=== PATIENT | female | born 1945 | race Caucasian/White ===

== ENCOUNTER 2021-02-25 10:20 | Observation (INO) | payer SELFPAY ==
[~2021-02-25] VITALS: Ht 157.5 cm; Wt 81.8 kg
[2021-02-25] MEDS ORDERED: IV NORMAL SALINE 1000ML BAG 1,000 ML IV ONE ×2 (10:30→13:00)
--- NOTE | 2021-02-25 10:45 | PHYS DOC ---
Adult General Chief Complaint Chief Complaint: NEAR SYNCOPE HPI HPI The patient is a 75-year-old female with a history of hypertension on carvedilol (no new meds) and who is otherwise healthy. She was in her normal state of health earlier today. Ms. Wiley presents for evaluation of sudden onset of profound lightheadedness, diaphoresis and fatigue with onset while she was sitting in the bleachers getting ready to watch her grandson wrestle. Associated chest pressure affecting her bilateral upper chest and shoulders, nonexertional and nonpleuritic. Associated mild shortness of breath. Patient states she had been sitting for some time when she suddenly developed all of the symptoms noted above. Patient did not frankly pass out but had to lay down on the bleachers. No associated fevers, nausea or vomiting, headache, focal or lateralizing weakness, numbness or tingling, neck stiffness/pain/meningismus, vision changes, upper respiratory congestion/rhinorrhea, cough, sore throat, abdominal pain of any kind, flank pain, midline back pain, dysuria, hematuria, polyuria or oliguria, changes in bowel habits. Patient endorses normal intake of food and fluids prior to onset of symptoms; she stopped for [employer] before the wrestling match. EMS report that patient had a low blood pressure measured initially when they came on scene; she did not have palpable radial or DP/PT pulses bilaterally for them initially but once they got her moved to the cot and brought her outside, normal pulses were palpable and blood pressure was appropriate, as was blood glucose. EMS twelve-lead EKG obtained and showed normal sinus rhythm, no ischemic changes. Patient is alert and pleasantly and appropriately interactive and in no acute distress with completely appropriate vital signs upon initial evaluation here in the emergency department. She states she feels fine now and that her symptoms lasted for 5 to 10 minutes in total. She was able to ambulate from the cot to her ED bed with a narrow, steady, non-ataxic gait. Review of Systems Review of Systems A 12 point review of systems was completed and was negative except where noted in HPI above. Current Medications Current Medications Current Medications Medications (Trade) Dose Ordered Sig/Wong Start Time Stop Time Status Last Admin Dose Admin Sodium Chloride 1,000 ml @ 1,000 mls/hr 1X ONCE 02/25/21 10:30 02/25/21 11:29 DC 02/25/21 11:11 1,000 MLS/HR Allergies Allergies Allergies Coded Allergies Type Severity Reaction Last Updated Verified No Known Drug Allergies 02/25/21 No Physical Exam Physical Exam 79-year-old female appearing nontoxic and in no acute distress. Head is normocephalic and atraumatic. Neck is supple and nontender. No JVD. Oropharynx is moist. Lungs are clear to auscultation at all stations. There is a normal S1 and S2 without rubs or gallops and capillary refill is appropriate, less than 2 seconds globally. Abdomen is soft, nontender and nondistended with no blood pulsatile mass. Skin is warm and dry without cyanosis, clubbing or edema. Psychiatrically, the patient demonstrates appropriate mood and affect and is alert. Neurologically, cranial nerves II through XII are intact and there are no lateralizing deficits seen. Speech is normal. Language is normal. Coordination is normal. There is no dysmetria with [id number] or [id number] bilaterally. Strength is 5 out of 5 in all joints of bilateral upper and lower extremities. Sensations intact light touch in bilateral upper and lower extremities. Patient ambulates with a narrow, steady, non-ataxic gait here in the emergency department and is alert and oriented x4. Evaluation of the extremities reveals BUEs and BLEs neurovascularly intact distally with strength 5-5, sensation intact light touch in all nerve distributions, radial, DP and PT pulses 2+ and equal bilaterally, capillary refill less than 2 seconds, hands and feet warm and well-perfused. No dependent peripheral edema distally. No calf tenderness or swelling bilaterally. Alexis's test is negative bilaterally. Current Patient Data Vital Signs Vital Signs Date Time Temp Pulse Resp B/P (MAP) Pulse Ox O2 Delivery O2 Flow Rate FiO2 02/25/21 10:25 98.3 58 18 106/64 (78) 98 Room Air 98.3 Lab Values Laboratory Tests Test 02/25/21 11:00 White Blood Count 7.9 x10^3/uL (4.0-11.0) Red Blood Count 4.27 x10^6/uL (3.50-5.40) Hemoglobin 12.4 g/dL (12.0-15.5) Hematocrit 37.9 % (36.0-47.0) Mean Corpuscular Volume 89 fL (79-100) Mean Corpuscular Hemoglobin 29 pg (25-35) Mean Corpuscular Hemoglobin Concent 33 g/dL (31-37) Red Cell Distribution Width 13.4 % (11.5-14.5) Platelet Count 422 x10^3/uL (140-400) H Neutrophils (%) (Auto) 61 % (31-73) Lymphocytes (%) (Auto) 29 % (24-48) Monocytes (%) (Auto) 8 % (0-9) Eosinophils (%) (Auto) 2 % (0-3) Basophils (%) (Auto) 1 % (0-3) Neutrophils # (Auto) 4.8 x10^3/uL (1.8-7.7) Lymphocytes # (Auto) 2.3 x10^3/uL (1.0-4.8) Monocytes # (Auto) 0.6 x10^3/uL (0.0-1.1) Eosinophils # (Auto) 0.2 x10^3/uL (0.0-0.7) Basophils # (Auto) 0.1 x10^3/uL (0.0-0.2) Sodium Level 136 mmol/L (136-145) Potassium Level 4.2 mmol/L (3.5-5.1) Chloride Level 100 mmol/L (98-107) Carbon Dioxide Level 26 mmol/L (21-32) Anion Gap 10 (6-14) Blood Urea Nitrogen 25 mg/dL (7-20) H Creatinine 1.1 mg/dL (0.6-1.0) H Estimated GFR (Cockcroft-Gault) 48.6 BUN/Creatinine Ratio 23 (6-20) H Glucose Level 93 mg/dL (70-99) Calcium Level 8.7 mg/dL (8.5-10.1) Total Bilirubin 1.1 mg/dL (0.2-1.0) H Aspartate Amino Transferase (AST) 15 U/L (15-37) Alanine Aminotransferase (ALT) 21 U/L (14-59) Alkaline Phosphatase 75 U/L (46-116) Troponin I High Sensitivity 6 ng/L (4-50) SP-Tyy-D-Type Natriuretic Peptide 91 pg/mL (0-124) Total Protein 6.9 g/dL (6.4-8.2) Albumin 3.2 g/dL (3.4-5.0) L Albumin/Globulin Ratio 0.9 (1.0-1.7) L SARS-CoV-2 Antigen (Rapid) Negative (NEGATIVE) Laboratory Tests 02/25/21 11:00 Laboratory Tests 02/25/21 11:00 EKG EKG Sinus rhythm, rate 54, no acute ST elevation or depression, CO 176, QRS 88, QTc 411, EP interpretation. T wave inversion lead III only, uncertain chronicity as no priors for comparison. Nonischemic tracing, intervals appropriate. Radiology/Procedures Radiology/Procedures [] Course & Med Decision Making Course & Med Decision Making Well-appearing 79-year-old female presenting for evaluation of a fairly protracted presyncopal episode with onset at rest, entailing probable low blood pressure as well as diaphoresis, shortness of breath and chest discomfort. All symptoms resolved during transport and the patient is asymptomatic here. Heart rate a little slow but is on carvedilol. Overall a fairly concerning scenario as described. Etiologies including transient dysrhythmia and symptomatic bradycardia are considered. EKG nonischemic and nonacute. Will check labs and chest x-ray and give a liter of fluids and will then reevaluate. If work-up is reassuring, plan likely observation on telemetry overnight. This is discussed with the patient who understands and agrees. 1226: Work-up unremarkable and reassuring. Patient is resting comfortably in no acute distress, remains asymptomatic. No unusual events seen on cardiac telemetry. Will bring in on an observation basis for telemetry monitoring and further care. Dr. Perdue graciously accepts. Dragon Disclaimer Dragon Disclaimer This electronic medical record was generated, in whole or in part, using a voice recognition dictation system. Departure Departure Impression: Primary Impression: Pre-syncope Disposition: ADMITTED INPATIENT Condition: FABIANA ANDRADE MD Feb 25, 2021 10:45
[2021-02-25 11:20] LABS: BASO # 0.1 x10^3/uL (0.0-0.2); BASO % 1 % (0-3); EOS # 0.2 x10^3/uL (0.0-0.7); EOS % 2 % (0-3); HEMATOCRIT 37.9 % (36.0-47.0); HEMOGLOBIN 12.4 g/dL (12.0-15.5); LYMPH # 2.3 x10^3/uL (1.0-4.8); LYMPH % 29 % (24-48); MEAN CORPUSCULAR HEMOGLOBIN 29 pg (25-35); MEAN CORPUSCULAR HGB CONC 33 g/dL (31-37); MEAN CORPUSCULAR VOLUME 89 fL (79-100); MONO # 0.6 x10^3/uL (0.0-1.1); MONO % 8 % (0-9); NEUT # 4.8 x10^3/uL (1.8-7.7); NEUT % 61 % (31-73); PLATELET COUNT 422 x10^3/uL (140-400); RED BLOOD COUNT 4.27 x10^6/uL (3.50-5.40); RED CELL DISTRIBUTION WIDTH 13.4 % (11.5-14.5); WHITE BLOOD COUNT 7.9 x10^3/uL (4.0-11.0)
--- NOTE | 2021-02-25 11:24 | RAD ---
EXAM: Chest, single view. HISTORY: Presyncope. COMPARISON: None. FINDINGS: A frontal view of the chest is obtained. There is no infiltrate, pleural effusion or pneumo thorax. The heart is normal in size. IMPRESSION: No acute pulmonary finding. Electronically signed by: Kristine Naik MD (02/25/2021 11:22 AM) [id number]
[2021-02-25 11:37] LABS: CALCIUM 8.7 mg/dL (8.5-10.1); CREATININE 1.1 mg/dL (0.6-1.0); GFR 48.6; POTASSIUM 4.2 mmol/L (3.5-5.1)
[2021-02-25 11:48] LABS: ALBUMIN 3.2 g/dL (3.4-5.0); ALBUMIN/GLOBULIN RATIO 0.9 (1.0-1.7); TOTAL BILIRUBIN 1.1 mg/dL (0.2-1.0); TOTAL PROTEIN 6.9 g/dL (6.4-8.2)
[2021-02-25] MEDS ORDERED: ONDANSETRON PF 4 MG/2 ML VIAL. IVP PRN ×2 (12:30→13:00)
[2021-02-25 12:56] LABS: BILIRUBIN,URINE NEGATIVE (NEG); CLARITY,URINE CLEAR; COLOR,URINE YELLOW; NITRITE,URINE NEGATIVE (NEG); PROTEIN,URINE NEGATIVE (NEG-TRACE); UROBILINOGEN,URINE 0.2 mg/dL (0.2 mg/dL)
[2021-02-25] MEDS ORDERED: ZOLPIDEM 5 MG TABLET. PO PRN (13:00)
[2021-02-25] MEDS ORDERED: oxyCODONE IR 5 MG TABLET PO PRN (13:00)
[2021-02-25] MEDS ORDERED: ELECTROLYTE (NON-ICU) PROTOCOL. MC PRN (13:00)
[2021-02-25] MEDS ORDERED: ACETAMINOPHEN 325 MG TABLET. PO PRN (13:00)
[2021-02-25] MEDS ORDERED: CALCIUM CARBONATE 500 MG TAB.CHEW PO PRN (13:00)
--- NOTE | 2021-02-25 13:00 | NUR ---
PATIENT ARRIVED TO FLOOR VIA GURNEY FROM ED. COOPERATIVE CALM, a ALERT AND ORIENTED X 3 . NO COMPLAINTS OF DIZZINESS OR LIGHT HEADNESS. VOCALIZES NEEDS.
[2021-02-25 13:12] LABS: BACTERIA,URINE 0 /HPF (0-FEW); HYALINE CASTS, URINE OCCASIONAL /HPF; RBC,URINE 0 /HPF (0-2); WBC,URINE OCC /HPF (0-4)
[2021-02-25 15:00] VITALS: BP 108/61
[2021-02-25] MEDS ORDERED: SPIR25TA5 PO (15:39)
[2021-02-25] MEDS ORDERED: LOSA100T14 PO (15:42)
[2021-02-25] MEDS ORDERED: CARV25TA2 PO (15:43)
[2021-02-25] MEDS ORDERED: GABA300C18 PO (15:50)
--- NOTE | 2021-02-25 17:13 | PDOC1 ---
History and Physical Date of Service: DOS: DATE: 02/25/21 TIME: 17:12 Chief Complaint: Problems: (1) Pre-syncope History of Present Illness: HPI: HPI from ED The patient is a 75-year-old female with a history of hypertension on carvedilol (no new meds) and who is otherwise healthy. She was in her normal state of health earlier today. Ms. Wiley presents for evaluation of sudden onset of profound lightheadedness, diaphoresis and fatigue with onset while she was sitting in the bleachers getting ready to watch her grandson wrestle. Associated chest pressure affecting her bilateral upper chest and shoulders, nonexertional and nonpleuritic. Associated mild shortness of breath. Patient states she had been sitting for some time when she suddenly developed all of the symptoms noted above. Patient did not frankly pass out but had to lay down on the bleachers. No associated fevers, nausea or vomiting, headache, focal or lateralizing weakness, numbness or tingling, neck stiffness/pain/meningismus, vision changes, upper respiratory congestion/rhinorrhea, cough, sore throat, abdominal pain of any kind, flank pain, midline back pain, dysuria, hematuria, polyuria or oliguria, changes in bowel habits. Patient endorses normal intake of food and fluids prior to onset of symptoms; she stopped for [employer] before the wrestling match. EMS report that patient had a low blood pressure measured initially when they came on scene; she did not have palpable radial or DP/PT pulses bilaterally for them initially but once they got her moved to the cot and brought her outside, normal pulses were palpable and blood pressure was appropriate, as was blood glucose. EMS twelve-lead EKG obtained and showed normal sinus rhythm, no ischemic changes. Patient is alert and pleasantly and appropriately interactive and in no acute distress with completely appropriate vital signs upon initial evaluation here in the emergency department. She states she feels fine now and that her symptoms lasted for 5 to 10 minutes in total. She was able to ambulate from the cot to her ED bed with a narrow, steady, non-ataxic gait. When I evaluated the patient she was resting in bed asymptomatic. Reviewed telemetry no abnormal beats. Past Medical/Surgical History: PMH/PSH: HTN Allergies: Allergies: Coded Allergies: No Known Drug Allergies (Unverified , 02/25/21) Family History: Family History: HTN Social History: Social History: Denies alcohol tobacco drug use Current Medications: Current Medications Current Medications Sodium Chloride 1,000 ml @ 1,000 mls/hr 1X ONCE IV Last administered on 02/25/21at 11:11; Start 02/25/21 at 10:30; Stop 02/25/21 at 11:29; Status DC Ondansetron HCl (Zofran) 4 mg PRN Q8HRS PRN IVP NAUSEA/VOMITING; Start 02/25/21 at 12:30; Stop 02/25/21 at 13:01; Status DC Sodium Chloride 1,000 ml @ 1,000 mls/hr 1X ONCE IV Last administered on 02/25/21at 13:00; Start 02/25/21 at 13:00; Stop 02/25/21 at 13:59; Status DC Ondansetron HCl (Zofran) 4 mg PRN Q6HRS PRN IVP NAUSEA/VOMITING; Start 02/25/21 at 13:00 Calcium Carbonate/ Glycine (Tums) 500 mg PRN Q3HRS PRN PO UPSET STOMACH; Start 02/25/21 at 13:00 Zolpidem Tartrate (Ambien) 5 mg PRN QHS PRN PO INSOMNIA, MAY REPEAT IN 1HR; Start 02/25/21 at 13:00 Info (Non-Icu Electrolyte Protocol) 1 ea PRN DAILY PRN MC SEE COMMENTS; Start 02/25/21 at 13:00 Oxycodone HCl (Roxicodone) 5 mg PRN Q3HRS PRN PO BREAKTHROUGH PAIN; Start 02/25/21 at 13:00 Acetaminophen (Tylenol) 650 mg PRN Q6HRS PRN PO Headaches, Temp > 101.5F; Start 02/25/21 at 13:00 Senna/Docusate Sodium (Senna Plus) 1 tab BID PO ; Start 02/25/21 at 21:00 Heparin Sodium (Porcine) (Heparin Sodium) 5,000 unit Q12HR SQ ; Start 02/25/21 at 21:00 Active Scripts Active Reported Gabapentin (Gabapentin) 300 Mg Capsule 300 Mg PO DAILYWSUP Carvedilol 25 Mg Tablet 25 Mg PO BIDWMEALS Losartan Potassium 100 Mg Tablet 100 Mg PO DAILY Spironolactone 25 Mg Tablet 1 Tab PO DAILY ROS: Review of Systems Review of System REVIEW OF SYSTEMS: GENERAL: Denies weakness SKIN: No bruising, hair changes or rashes. EYES: No blurred, double or loss of vision. NOSE AND THROAT: No history of nosebleeds, hoarseness or sore throat. HEART: No history of palpitations, chest pain or shortness of breath on exertion. LUNGS: Denies cough, hemoptysis, wheezing or shortness of breath. GASTROINTESTINAL: Denies changes in appetite, nausea, vomiting, diarrhea or constipation. GENITOURINARY: No history of frequency, urgency, hesitancy or nocturia. NEUROLOGIC: Denies history of numbness, tingling, or tremor. PSYCHIATRIC: No history of panic, anxiety or depression. ENDOCRINE: No history of heat or cold intolerance, polyuria or polydipsia. EXTREMITIES: Denies joint pain, pain on walking or stiffness. Physical Exam: Vital Signs: Vital Signs Date Time Temp Pulse Resp B/P (MAP) Pulse Ox O2 Delivery O2 Flow Rate FiO2 02/25/21 15:00 98.0 63 20 108/61 (77) 98 Room Air 98.0 Physcial Exam: GEN: No apparent distress. Alert and oriented HEENT: Normal cephalic, atraumatic, external auditory canals are patent EYES: Extraocular muscles are intact, pupil are equally round and reactive to light and accommodation MUSCULOSKELETAL: Well developed , well nourished, good range of motion ENDOCRINE: No thyromegaly was palpated LYMPHATICS: No cervical chain or axillary nodes were noted HEMATOPOIETIC: No bruising NECK: Supple, no JVD, no thyromegaly was noted LUNGS: Clear to auscultation in all lung darnell without rhonchi or wheezing HEART: RRR, S!, S2 present. Peripheral pulses intact, no obvious murmurs noted ABDOMEN: Soft, nontender. Positive bowel sounds, no organomegaly, normal bowel sounds EXTREMITIES: Without clubbing, cyanosis, or edema. Pedal pulses intact. Negative Homans sign NEUROLOGIC: Normal speech and tone. A&O x 3, moves all extremities, no obvious focal deficits PSYCHIATRIC: Normal affect, normal mood. Stable SKIN: No ulcerations or rashes, good skin turgor, no jaundice VASCULAR: Good capillary refill, neurovascular bundle appears to be intact Labs: Labs: Laboratory Tests Test 02/25/21 11:00 02/25/21 12:45 White Blood Count 7.9 x10^3/uL (4.0-11.0) Red Blood Count 4.27 x10^6/uL (3.50-5.40) Hemoglobin 12.4 g/dL (12.0-15.5) Hematocrit 37.9 % (36.0-47.0) Mean Corpuscular Volume 89 fL (79-100) Mean Corpuscular Hemoglobin 29 pg (25-35) Mean Corpuscular Hemoglobin Concent 33 g/dL (31-37) Red Cell Distribution Width 13.4 % (11.5-14.5) Platelet Count 422 x10^3/uL (140-400) Neutrophils (%) (Auto) 61 % (31-73) Lymphocytes (%) (Auto) 29 % (24-48) Monocytes (%) (Auto) 8 % (0-9) Eosinophils (%) (Auto) 2 % (0-3) Basophils (%) (Auto) 1 % (0-3) Neutrophils # (Auto) 4.8 x10^3/uL (1.8-7.7) Lymphocytes # (Auto) 2.3 x10^3/uL (1.0-4.8) Monocytes # (Auto) 0.6 x10^3/uL (0.0-1.1) Eosinophils # (Auto) 0.2 x10^3/uL (0.0-0.7) Basophils # (Auto) 0.1 x10^3/uL (0.0-0.2) Sodium Level 136 mmol/L (136-145) Potassium Level 4.2 mmol/L (3.5-5.1) Chloride Level 100 mmol/L (98-107) Carbon Dioxide Level 26 mmol/L (21-32) Anion Gap 10 (6-14) Blood Urea Nitrogen 25 mg/dL (7-20) Creatinine 1.1 mg/dL (0.6-1.0) Estimated GFR (Cockcroft-Gault) 48.6 BUN/Creatinine Ratio 23 (6-20) Glucose Level 93 mg/dL (70-99) Calcium Level 8.7 mg/dL (8.5-10.1) Total Bilirubin 1.1 mg/dL (0.2-1.0) Aspartate Amino Transf (AST/SGOT) 15 U/L (15-37) Alanine Aminotransferase (ALT/SGPT) 21 U/L (14-59) Alkaline Phosphatase 75 U/L (46-116) Troponin I High Sensitivity 6 ng/L (4-50) YF-Hbt-J-Type Natriuretic Peptide 91 pg/mL (0-124) Total Protein 6.9 g/dL (6.4-8.2) Albumin 3.2 g/dL (3.4-5.0) Albumin/Globulin Ratio 0.9 (1.0-1.7) SARS-CoV-2 Antigen (Rapid) Negative (NEGATIVE) Urine Collection Type Void Urine Color Yellow Urine Clarity Clear Urine pH 6.0 (<5.0-8.0) Urine Specific [place] 1.015 (1.000-1.030) Urine Protein Negative mg/dL (NEG-TRACE) Urine Glucose (UA) Negative mg/dL (NEG) Urine Ketones (Stick) Negative mg/dL (NEG) Urine Blood Negative (NEG) Urine Nitrite Negative (NEG) Urine Bilirubin Negative (NEG) Urine Urobilinogen Dipstick 0.2 mg/dL (0.2 mg/dL) Urine Leukocyte Esterase Negative (NEG) Urine RBC 0 /HPF (0-2) Urine WBC Occ /HPF (0-4) Urine Squamous Epithelial Cells Occ /LPF Urine Bacteria 0 /HPF (0-FEW) Urine Hyaline Casts Occasional /HPF Laboratory Tests Test 02/25/21 11:00 02/25/21 12:45 White Blood Count 7.9 x10^3/uL (4.0-11.0) Red Blood Count 4.27 x10^6/uL (3.50-5.40) Hemoglobin 12.4 g/dL (12.0-15.5) Hematocrit 37.9 % (36.0-47.0) Mean Corpuscular Volume 89 fL (79-100) Mean Corpuscular Hemoglobin 29 pg (25-35) Mean Corpuscular Hemoglobin Concent 33 g/dL (31-37) Red Cell Distribution Width 13.4 % (11.5-14.5) Platelet Count 422 x10^3/uL (140-400) Neutrophils (%) (Auto) 61 % (31-73) Lymphocytes (%) (Auto) 29 % (24-48) Monocytes (%) (Auto) 8 % (0-9) Eosinophils (%) (Auto) 2 % (0-3) Basophils (%) (Auto) 1 % (0-3) Neutrophils # (Auto) 4.8 x10^3/uL (1.8-7.7) Lymphocytes # (Auto) 2.3 x10^3/uL (1.0-4.8) Monocytes # (Auto) 0.6 x10^3/uL (0.0-1.1) Eosinophils # (Auto) 0.2 x10^3/uL (0.0-0.7) Basophils # (Auto) 0.1 x10^3/uL (0.0-0.2) Sodium Level 136 mmol/L (136-145) Potassium Level 4.2 mmol/L (3.5-5.1) Chloride Level 100 mmol/L (98-107) Carbon Dioxide Level 26 mmol/L (21-32) Anion Gap 10 (6-14) Blood Urea Nitrogen 25 mg/dL (7-20) Creatinine 1.1 mg/dL (0.6-1.0) Estimated GFR (Cockcroft-Gault) 48.6 BUN/Creatinine Ratio 23 (6-20) Glucose Level 93 mg/dL (70-99) Calcium Level 8.7 mg/dL (8.5-10.1) Total Bilirubin 1.1 mg/dL (0.2-1.0) Aspartate Amino Transf (AST/SGOT) 15 U/L (15-37) Alanine Aminotransferase (ALT/SGPT) 21 U/L (14-59) Alkaline Phosphatase 75 U/L (46-116) Troponin I High Sensitivity 6 ng/L (4-50) UB-Jmb-P-Type Natriuretic Peptide 91 pg/mL (0-124) Total Protein 6.9 g/dL (6.4-8.2) Albumin 3.2 g/dL (3.4-5.0) Albumin/Globulin Ratio 0.9 (1.0-1.7) SARS-CoV-2 Antigen (Rapid) Negative (NEGATIVE) Urine Collection Type Void Urine Color Yellow Urine Clarity Clear Urine pH 6.0 (<5.0-8.0) Urine Specific [place] 1.015 (1.000-1.030) Urine Protein Negative mg/dL (NEG-TRACE) Urine Glucose (UA) Negative mg/dL (NEG) Urine Ketones (Stick) Negative mg/dL (NEG) Urine Blood Negative (NEG) Urine Nitrite Negative (NEG) Urine Bilirubin Negative (NEG) Urine Urobilinogen Dipstick 0.2 mg/dL (0.2 mg/dL) Urine Leukocyte Esterase Negative (NEG) Urine RBC 0 /HPF (0-2) Urine WBC Occ /HPF (0-4) Urine Squamous Epithelial Cells Occ /LPF Urine Bacteria 0 /HPF (0-FEW) Urine Hyaline Casts Occasional /HPF Assessment/Plan Assessment/Plan Presyncope -Admit monitor on tele -Replace electrolytes ad needed -Given lack of cardiac history will hold off on eval or cardiac workup with such an isolated event -d/c home this evening Justifications for Admission Other Justification ISAAC ELIZABETH MD Feb 25, 2021 17:13
--- NOTE | 2021-02-25 17:24 | NUR ---
DOCTOR IN TO SEE PATIENT WILL DISCHARGE TO HOME. WILL FOLLOW WITH PRIMARY CARE DOCTOR.
--- NOTE | 2021-02-25 17:26 | PDOC3 ---
[facility]-Discharge Summary Date of Admission: Date of Admission: Feb 25, 2021 Date of Discharge: Date of Discharge: Feb 25, 2021 Admission Diagnosis: Problems: (1) Pre-syncope Hospital Course: Hospital Course: HPI from ED The patient is a 75-year-old female with a history of hypertension on carvedilol (no new meds) and who is otherwise healthy. She was in her normal state of health earlier today. Ms. Wiley presents for evaluation of sudden onset of profound lightheadedness, diaphoresis and fatigue with onset while she was sitting in the bleachers getting ready to watch her grandson wrestle. Associated chest pressure affecting her bilateral upper chest and shoulders, nonexertional and nonpleuritic. Associated mild shortness of breath. Patient states she had been sitting for some time when she suddenly developed all of the symptoms noted above. Patient did not frankly pass out but had to lay down on the bleachers. No associated fevers, nausea or vomiting, headache, focal or lateralizing weakness, numbness or tingling, neck stiffness/pain/meningismus, vision changes, upper respiratory congestion/rhinorrhea, cough, sore throat, abdominal pain of any kind, flank pain, midline back pain, dysuria, hematuria, polyuria or oliguria, changes in bowel habits. Patient endorses normal intake of food and fluids prior to onset of symptoms; she stopped for [employer] before the wrestling match. EMS report that patient had a low blood pressure measured initially when they came on scene; she did not have palpable radial or DP/PT pulses bilaterally for them initially but once they got her moved to the cot and brought her outside, normal pulses were palpable and blood pressure was appropriate, as was blood glucose. EMS twelve-lead EKG obtained and showed normal sinus rhythm, no ischemic changes. Patient is alert and pleasantly and appropriately interactive and in no acute distress with completely appropriate vital signs upon initial evaluation here in the emergency department. She states she feels fine now and that her symptoms lasted for 5 to 10 minutes in total. She was able to ambulate from the cot to her ED bed with a narrow, steady, non-ataxic gait. When I evaluated the patient she was resting in bed asymptomatic. Reviewed telemetry no abnormal beats. 02/25 Patient remained asymptomatic. Reviewed telemetry no abnormality seen. Discharge home with follow-up with primary care provider Disposition: Disposition/Orders: D/C to Home Activity: Activity: Resume previous activity Diet: Diet: Regular Medications: Home Meds Reported Medications Gabapentin (GABAPENTIN ) 300 Mg Capsule, 300 MG PO DAILYWSUP for Neuropathy, CAP 02/25/21 Carvedilol (CARVEDILOL) 25 Mg Tablet, 25 MG PO BIDWMEALS for Hypertension, TAB 02/25/21 Losartan Potassium (LOSARTAN POTASSIUM) 100 Mg Tablet, 100 MG PO DAILY for hypertension, TAB 02/25/21 Spironolactone (SPIRONOLACTONE) 25 Mg Tablet, 1 TAB PO DAILY for Diuretics, TAB 02/25/21 Scheduled Carvedilol (Carvedilol), 25 MG PO BIDWMEALS, (Reported) Gabapentin (Gabapentin ), 300 MG PO DAILYWSUP, (Reported) Losartan Potassium (Losartan Potassium), 100 MG PO DAILY, (Reported) Spironolactone (Spironolactone), 1 TAB PO DAILY, (Reported) Justicifation of Admission Dx: Justifications for Admission: Justification of Admission Dx: Yes (presyncope) ISAAC ELIZABETH MD Feb 25, 2021 17:26
--- NOTE | 2021-02-25 18:45 | NUR ---
Patient has received discharged instructions and to follow up with PCP on Saturday.
[2021-02-25 19:33] VITALS: BP 133/56
--- NOTE | 2021-02-25 20:20 | NUR ---
Discharge Note: ROSITA CAGE [facility] Discharge instructions and discharge home medications reviewed with Patient and a copy given. All questions have been answered and understanding verbalized. The following instructions and handouts were given: follow up guidelines Discontinued PIV and hemostasis obtained. Removed tele monitor. Pt discharged with all belongings. Patient discharged to Home or Self Care with her son via Wheelchair.
[2021-02-25] MEDS ORDERED: HEPARIN for SUB-Q USE 5,000 UNIT/ML VIAL. SQ SCH (21:00)
[2021-02-25] MEDS ORDERED: SENNOSIDES/DOCUSATE 8.6/50MG TABLET. PO SCH (21:00)
--- NOTE | 2021-02-26 03:23 | EKG ---
[facility] [address] [place] [address] Test Date: 2021-02-25 Test Time: 10:35:42 Pat Name: KYA CAGE Department: Room: [facility] Gender: F In Service Educator: : 1945 Requested By: FABIANA MESSER Order Number: [id number] Reading MD: Allan Underwood MD Measurements Intervals [place] Rate: 54 P: 52 [place]: 176 QRS: -11 QRSD: 88 T: 6 QT: 432 QTc: 411 Interpretive Statements SINUS RHYTHM Electronically Signed On 03-06-2021 15:50:44 [employer] by Allan Underwood MD
== END 2021-02-25 22:48 | disposition home or self-care (01) ==
LOC: ER 10:20 → EDBD 10:20 → 6 SOUTH 12:22
PROVIDERS: ADMIT Student in an Organized Health Care Education/Training Program; ATTEND Student in an Organized Health Care Education/Training Program
DX: R55 Syncope and collapse (principal); Z20.822 Contact with and (suspected) exposure to COVID-19; I10 Essential (primary) hypertension
CPT/HCPCS: 36415; 71045; 80053; 81001; 83880; 84484; 85025; 87426; 93005; 96360; 96361; 97116; 97161; 97165; 99285; G0378; J7030; U0003; U0005; G0379